=== PATIENT | male | born 1965 | race Caucasian/White ===

== ENCOUNTER 2018-01-03 02:33 | Emergency (ER) | payer BC ==
[~2018-01-03] VITALS: Ht 188 cm; Wt 57.7 kg
[2018-01-03] MEDS ORDERED: TEMAZEPAM30 MG PO (02:53)
[2018-01-03] MEDS ORDERED: FAMOTIDINE20 M3 PO (02:54)
[2018-01-03] MEDS ORDERED: CEFUROXIME AXE500 MG PO (02:56)
[2018-01-03] MEDS ORDERED: TORADOL PO (03:57)
[2018-01-03 04:20] VITALS: BP 116/62
== END 2018-01-03 04:20 | disposition home or self-care (01) | DRG 605 ==
LOC: ED 02:33
DX: S70.02XA Contusion of left hip, initial encounter (principal); S70.01XA Contusion of right hip, initial encounter; F10.10 Alcohol abuse, uncomplicated; C15.9 Malignant neoplasm of esophagus, unspecified; F17.210 Nicotine dependence, cigarettes, uncomplicated; W18.30XA Fall on same level, unspecified, initial encounter